=== PATIENT | male | born 1960 | race Caucasian/White ===

== ENCOUNTER 2021-11-14 13:06 | Emergency (ER) | payer BC, SELFPAY ==
[2021-11-14] VITALS (11 sets, daily range): BP systolic 117–140; BP diastolic 72–95; PULSE 75–99; RESP 16–18; TEMP 37.1; O2SAT 96–100; BMI 19.8
--- NOTE | 2021-11-14 13:41 | CRLHL7_ITS ---
For Patients: As a result of the Cures Act, medical imaging exams and procedure reports are released immediately into your electronic medical record. You may view this report before your referring provider. If you have questions, please contact your health care provider. INDICATION: Trauma with posterior left rib pain COMPARISON: A chest radiograph dated January 19 2018 TECHNIQUE: Single-view of the chest was acquired as well as 2 additional images the left rib cage. FINDINGS: TUBES AND LINES: None. HEART AND MEDIASTINUM: The heart size is normal. The mediastinal contour appears normal for patient age. LUNGS AND PLEURAL SPACES: Hyperinflated but otherwise unremarkable appearing lungs. No acute focal findings.No pleural effusion or pneumothorax OSSEOUS STRUCTURES: Demineralization and degenerative changes. There are posterior left rib fractures. This involves the 5th, 7th and 8th and probably ribs. Some of these appear to be chronic though the 8th rib fracture is definitely acute. There is no significant displacement IMPRESSION: 1. Hyperinflated but otherwise normal appearing lungs. No pleural effusion or pneumothorax. 2. Multiple posterior left rib fractures. Some of these are probably not acute. The fracture that is most likely to be acute is a non displaced left 8th rib fracture. None of the fractures appear to be displaced. The subjacent left lung and left pleural space appear normal. Dictated by Crow Armando MD @ 11/14/2021 3:07:16 PM (Electronically Signed)
--- NOTE | 2021-11-14 13:41 | CRLHL7_ITS ---
For Patients: As a result of the Century Cures Act, medical imaging exams and procedure reports are released immediately into your electronic medical record. You may view this report before your referring provider. If you have questions, please contact your health care provider. INDICATION: FALL, HEADACHE CT HEAD WITHOUT CONTRAST TECHNIQUE: Multiple axial CT images were performed through the head without intravenous contrast administration. COMPARISON: No previous studies are currently available for comparison. FINDINGS: There is an acute subdural hematoma over the anterior convexity of the right frontal lobe measuring up to 13 millimeters in thickness. The subdural hematoma also extends along the undersurface of the right frontal lobe and slightly into the interhemispheric fissure. Trace subdural hematoma is also noted along the right tentorium posteriorly, as on image 46 of series 6 and image 90 of series 8. Mild mass effect on the right frontal lobe is noted, with approximately 3 millimeters of [id number] midline shift as measured on image 29 of series 2. There is hypodensity in the right frontal lobe, and to a lesser extent involving the inferomedial left frontal lobe which may represent edema from parenchymal contusion. Alternatively, this may represent chronic encephalomalacia from previous frontal lobe contusions. A trace amount of subarachnoid hemorrhage is noted in a paramedian sulcus over the high left frontal convexity on image 46 of series 2. There is mild diffuse age-related brain atrophy. Ventricular size and configuration are within normal limits for the patient`s age. 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 Osseous structures are within normal limits and no fractures are seen. Included portions of the paranasal sinuses and mastoid air cells are normally aerated aside from a polyp or mucous retention cyst in the left maxillary sinus. IMPRESSION: 1. Acute right-sided subdural hematoma, largest over the anterior right frontal convexity where it measures up to 13 millimeters in thickness. Mild mass effect with approximately 3 millimeters of right to left midline shift is noted. 2. Minimal right-sided subdural hematoma also extends into the anterior interhemispheric fissure and is also seen along the right tentorium posteriorly. 3. Trace subarachnoid hemorrhage is noted over the parasagittal left frontal convexity. 4. Hypodensity consistent with bilateral frontal lobe contusions, worse on the right than the left. 5. Hypodensity in the central norah consistent with a chronic infarct versus sequelae of osmotic demyelinization syndrome. Report called to Dr. Schwartz at 2:35 p.m. on 11/14/2021. SHARMILA FUENTES MD [facility] Dictated by Robles Fuentes MD @ 11/14/2021 2:57:51 PM Please note that all CT scans at this facility use dose modulation, iterative reconstruction, and/or weight-based dosing when appropriate to reduce radiation dose to as low as reasonably achievable. Dictated by: Robles Fuentes MD @ 11/14/2021 14:58:34 (Electronically Signed)
--- NOTE | 2021-11-14 13:42 | ED_ITS ---
HPI - General Adult General Time Seen by Provider: 13:43 Date Seen: 11/14/21 Chief complaint: Head Injury/Pain Stated complaint: Possible brain injury, hard to walk/sleep Time Seen by Provider: 11/14/21 13:16 Source: patient Mode of arrival: ambulatory Limitations: no limitations History of Present Illness HPI narrative: Finn is a 60-year-old male past medical history includes depression anxiety currently on Lexapro presents emerged department with a head injury. 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 Hitting the back of his head on the left side, denied any LOC, but since then he has had a ongoing headache, no nausea vomiting, headache is constant, left-sided, posterior and pounding, he also had injury to his left side of his ribs in the back, denies any shortness of breath or chest pain. No cardiac history. Patient does smoke daily, 1-2 drinks of alcohol daily, he has been taking [id number] medications for the this. Du to the pain he has not been able to get out of bed, has been drinking and eating last and not been able to go to work, and associated abrasions to his left elbow, does have some pain to his hips bilaterally but he is ambulating with no difficulty. Denies any fevers, chills, myalgias arthralgias, no sick contacts. Denies any abdominal pain, urinary bowel complaints, he denies any neck or lower back pain. Patient was concerned about his head injury presents emerged department. Related Data Home Medications Medication Instructions Recorded Confirmed Aleve 11/14/21 acetaminophen 1,000 mg 11/14/21 escitalopram oxalate 10 mg tablet mg 11/14/21 melatonin 11/14/21 Allergies Allergy/AdvReac Type Severity Reaction Status Date / Time No Known Drug Allergies Allergy Verified 11/14/21 13:22 Review of Systems Status of ROS: Reports: 10 or more systems reviewed and unremarkable except as noted in History and below [facility] Social History Smoking Status: Current every day smoker What tobacco products do you use: cigarettes How often do you have a drink containing alcohol: 2-3 times a week How many standard drinks containing alcohol do you have on a typical day: 1 or 2 How often do you have six or more drinks on one occasion: Never AUDIT-C Alcohol total score: 3 Non-prescribed substance use: denies use Exam Narrative: Exam Narrative: General: No obvious distress sitting comfortable HEENT: Small contusion left posterior scalp, no step-offs. Tympanic membranes within normal limits bilaterally oropharynx is clear and moist, pupils equal round reactive to light. Neck: Supple full range of motion, nontender cervical spine Lungs: Clear to auscultation bilaterally Heart: Normal sinus rhythm S1-S2 Abdomen: Nontender soft bowel sounds present Extremities: Internal-external rotation of his hips normal bilaterally, small abrasions to his left elbow healing. Plus five strength his upper lower extremities. Tender to palpation the left posterior lower rib area, no step-offs, no bruising or swelling. Neuro: Alert awake and oriented x3, cranial nerves 2-12 grossly intact, gait within normal limits Const: Vital Signs, click to edit/add: Vital Signs - 24 hr 11/14/21 13:17 11/14/21 15:00 11/14/21 16:00 Temperature 98.8 F Pulse Rate [Left P ulse Oximeter] 99 75 76 Respiratory Rate 18 16 16 Blood Pressure [Le ft Upper Arm] 140/82 H 135/85 Blood Pressure [Ri ght Upper Arm] 117/79 Pulse Oximetry 100 97 98 11/14/21 16:30 11/14/21 17:00 11/14/21 17:30 Temperature Pulse Rate [Left P ulse Oximeter] 75 79 78 Respiratory Rate 16 16 16 Blood Pressure [Le ft Upper Arm] 139/83 126/75 127/72 Blood Pressure [Ri ght Upper Arm] Pulse Oximetry 98 99 99 Course Course Hospital Course: 1:30 PM: AIDET, vitals are stable at this time, workup will include CT head without IV contrast, also obtain XR left ribs and chest x-ray three views, 0.9 normal saline bolus with 15 mg IV Toradol and 5% Lidoderm patch. Will obtain CBC, CMP, INR, serum ETOH magnesium level. Differential diagnosis include life- threatening subarachnoid hemorrhage, subdural hemorrhage and epidural hemorrhage. Other differential diagnosis considered include concussion and close head injury. As well as fracture, sprain, contusion, dislocation vascular damage nerve damage ligament damage tendon damage in other etiologies. 2:15 PM: Patient was feeling anxious after imaging, 0.5 mg IV Ativan and a Nicoderm 14 mg patch applied. Reevaluation(s) Reevaluation #1: Call from Dr. Lester regarding imaging results, to reach out to [facility]. Patient updated on imaging results, CT head without contrast: IMPRESSION:? 1. Acute right-sided subdural hematoma, largest over the anterior right frontal convexity where it measures up to 13 millimeters in thickness. Mild mass effect with approximately 3 millimeters of right to left midline shift is noted. 2. Minimal right-sided subdural hematoma also extends into the anterior interhemispheric fissure and is also seen along the right tentorium posteriorly. 3. Trace subarachnoid hemorrhage is noted over the parasagittal left frontal convexity. 4. Hypodensity consistent with bilateral frontal lobe contusions, worse on the right than the left. 5. Hypodensity in the central norah consistent with a chronic infarct versus sequelae of osmotic demyelinization syndrome. CT cervical spine without: Impression: No acute abnormality. XR ribs right and CXR: Impression: Multiple posterior left rib fractures. Some of these are probably not acute. The fracture that is most likely to be acute is a non displaced left 8th rib fracture. None of the fractures appear to be displaced. The subjacent left lung and left pleural space appear normal. 2:40 PM: spoke with lyft driver Dr. Addison, he recommended transfer admission to neuro ICU. This was discussed with patient he is agreement this plan. Acceptance was made by Dr. Azael BROWN. patient to be transferred via ground ambulance. Imaging sent and reviewed by Neuro Surgery. Labs were otherwise normal. COVID test negative. 4:00 PM: still awaiting on bed availability.. Patient is doing well. 6:00 PM: Bed available, plan to wait for transport at this time. Patient to be given 4 mg of IV morphine and 4 mg IV Zofran for his headache. 8:30 PM: patient is finally to be transported via ground ambulance, He is doing well, no concerns, headache has been controlled. All questions answered. . Time: 14:38 Vital Signs Vital signs: Initial Vital Signs Temperature 98.8 F 11/14/21 13:17 Temperature Source Temporal Artery Scan 11/14/21 13:17 Pulse Rate 99 11/14/21 13:17 Respiratory Rate 18 11/14/21 13:17 Blood Pressure 117/79 11/14/21 13:17 Blood Pressure Mean 91 11/14/21 13:17 Blood Pressure Position Sitting 11/14/21 13:17 Pulse Oximetry 100 11/14/21 13:17 Oxygen Delivery Method 11/14/21 13:17 Vital Signs Temperature 98.8 F 11/14/21 13:17 Pulse Rate 99 11/14/21 13:17 Respiratory Rate 18 11/14/21 13:17 Blood Pressure 117/79 11/14/21 13:17 Pulse Oximetry 100 11/14/21 13:17 Temperature 98.8 F 11/14/21 13:17 Pulse Rate 78 11/14/21 17:30 Respiratory Rate 16 11/14/21 17:30 Blood Pressure 127/72 11/14/21 17:30 Pulse Oximetry 99 11/14/21 17:30 Medical Decision Making Lab Data Labs: Lab Results 11/14/21 11/14/21 11/14/21 Range/Units 14:42 14:42 14:45 WBC 8.01 (4.50-11.00) K/uL RBC 4.19 L (4.30-5.90) m/uL Hgb 12.8 L (13.5-17.5) gm/dL Hct 38.0 (37.0-53.0) % MCV 91 (80-100) fL MCH 31 (26-34) pg MCHC 34 (32-36) gm/dL RDW Coeff of Marsha 19.9 H (11.5-15.5) % Plt Count 211 (140-440) K/uL Neut % (Auto) 80.2 H (42.0-72.0) % Lymph % (Auto) 6.9 L (20-44) % Scurry % (Auto) 12.0 H (0.0-11.0) % Eos % (Auto) 0.2 (0.0-7.0) % Baso % (Auto) 0.2 (0.0-3.0) % Neut # (Auto) 6.40 (1.7-7.0) K/uL Lymph # (Auto) 0.60 L (0.90-2.90) K/uL Scurry # (Auto) 1.00 H (0.00-0.90) K/UL Eos # (Auto) 0.02 (0.00-0.50) K/uL Baso # (Auto) 0.02 (0.00-0.30) K/uL Abs Immat Gran (auto) 0.04 (0.00-0.30) K/uL INR (0.91-1.10) Sodium (135-149) mmol/L Potassium (3.6-5.1) mmol/L Chloride (96-114) mmol/L Carbon Dioxide (20-32) mmol/L BUN (7-30) mg/dL Creatinine (0.5-1.5) mg/dL Estimated Creat Clear Estimated GFR ml/min Glucose (60-115) mg/dL Calcium (8.4-10.6) mg/dL Magnesium 2.4 (1.5-2.6) mg/dL Total Bilirubin (0.1-1.5) mg/dL AST (12-35) U/L ALT (4-50) U/L Alkaline Phosphatase (40-150) U/L Total Protein (6.0-8.3) g/dL Albumin (3.3-5.0) g/dL Ethyl Alcohol < 0.01 L (0.01-0.03) % SARS-CoV-2 (PCR) (Negative) 11/14/21 11/14/21 11/14/21 Range/Units 14:45 14:45 14:45 WBC (4.50-11.00) K/uL RBC (4.30-5.90) m/uL Hgb (13.5-17.5) gm/dL Hct (37.0-53.0) % MCV (80-100) fL MCH (26-34) pg MCHC (32-36) gm/dL RDW Coeff of Marsha (11.5-15.5) % Plt Count (140-440) K/uL Neut % (Auto) (42.0-72.0) % Lymph % (Auto) (20-44) % Scurry % (Auto) (0.0-11.0) % Eos % (Auto) (0.0-7.0) % Baso % (Auto) (0.0-3.0) % Neut # (Auto) (1.7-7.0) K/uL Lymph # (Auto) (0.90-2.90) K/uL Scurry # (Auto) (0.00-0.90) K/UL Eos # (Auto) (0.00-0.50) K/uL Baso # (Auto) (0.00-0.30) K/uL Abs Immat Gran (auto) (0.00-0.30) K/uL INR 0.88 L (0.91-1.10) Sodium 137 (135-149) mmol/L Potassium 4.4 (3.6-5.1) mmol/L Chloride 103 (96-114) mmol/L Carbon Dioxide 22 (20-32) mmol/L BUN 20 (7-30) mg/dL Creatinine 0.6 (0.5-1.5) mg/dL Estimated Creat Clear 64.70 Estimated GFR 110 ml/min Glucose 104 (60-115) mg/dL Calcium 9.3 (8.4-10.6) mg/dL Magnesium (1.5-2.6) mg/dL Total Bilirubin 1.1 (0.1-1.5) mg/dL AST 36 H (12-35) U/L ALT 22 (4-50) U/L Alkaline Phosphatase 132 (40-150) U/L Total Protein 7.8 (6.0-8.3) g/dL Albumin 4.3 (3.3-5.0) g/dL Ethyl Alcohol (0.01-0.03) % SARS-CoV-2 (PCR) Negative SARS-CoV-2 (Negative) Discharge Plan Discharge Clinical Impression: Left rib fracture, Traumatic subarachnoid hemorrhage, Traumatic subdural hematoma Patient Disposition: Xfer [facility] Discharge Location: [facility] Prescriptions: No Action escitalopram oxalate 10 mg tablet 0RF acetaminophen 1,000 mg 0RF Aleve 0RF melatonin 0RF Stand Alone Forms: MyHealth Info Instructions
[2021-11-14] MEDS: KETOROLAC 15 MG/ML inj IVP (14:04)
[2021-11-14] MEDS: LIDOCAINE 5% PATCH 1 PATCH TRANSDERMA (14:04)
--- NOTE | 2021-11-14 14:22 | CRLHL7_ITS ---
For Patients: As a result of the Century Cures Act, medical imaging exams and procedure reports are released immediately into your electronic medical record. You may view this report before your referring provider. If you have questions, please contact your health care provider. INDICATION: Head injury, neck pain. CT CERVICAL SPINE WITHOUT CONTRAST TECHNIQUE: Multidetector axial CT imaging was performed through the cervical spine, without contrast. Sagittal and coronal reconstructions were generated. FINDINGS: No acute fractures are identified. There is straightening of cervical lordosis, possibly due to muscle spasm. Slight anterolisthesis of C4 on C5 is likely chronic and degenerative in nature. Osseous alignment is otherwise unremarkable and no acute-appearing subluxation is seen. Prevertebral soft tissues appear normal. There are several small chronic-appearing ossific densities adjacent to the tip of the dens which are likely developmental or degenerative in origin. There are multilevel cervical spine degenerative changes, including degenerative disc disease at C5-6 and C6-7, and scattered cervical facet joint degenerative changes. Included portions of the airway and lung apices are within normal limits. IMPRESSION: 1. Straightened lordosis, possibly due to muscle spasm. No fracture, acute subluxation, or other acute finding identified. 2. Cervical spondylosis, as noted above. SHARMILA FUENTES MD [facility] Dictated by Robles Fuentes MD @ 11/14/2021 2:46:59 PM Please note that all CT scans at this facility use dose modulation, iterative reconstruction, and/or weight-based dosing when appropriate to reduce radiation dose to as low as reasonably achievable. Dictated by: Robles Fuentes MD @ 11/14/2021 14:47:22 (Electronically Signed)
[2021-11-14] MEDS: LORazepam 2 MG/ML inj 0.5 MG IVP (14:36)
[2021-11-14] MEDS: 0.9 % SODIUM CHLORIDE 500 ML 500 ML 1000 ML IV (14:39)
[2021-11-14 15:04] LABS: Magnesium* 2.4 mg/dL (1.5-2.6)
[2021-11-14 15:05] LABS: Ethanol* < 0.01 % (0.01-0.03)
[2021-11-14] MEDS: NICOTINE 14 mg PATCH 1 PATCH TRANSDERMA (15:14)
[2021-11-14 15:20] LABS: Albumin* 4.3 g/dL (3.3-5.0); Chloride* 103 mmol/L (96-114); Sodium* 137 mmol/L (135-149)
[2021-11-14 15:21] LABS: Potassium* 4.4 mmol/L (3.6-5.1)
[2021-11-14 15:23] LABS: Alanine Aminotransferase* 22 U/L (4-50); Alkaline Phosphatase* 132 U/L (40-150); Aspartate Amino Transferase* 36 U/L (12-35); Bilirubin Total* 1.1 mg/dL (0.1-1.5); Blood Urea Nitrogen* 20 mg/dL (7-30); Carbon Dioxide* 22 mmol/L (20-32); Creatinine* 0.6 mg/dL (0.5-1.5); Estimated Glomerular Filt Rate 110 ml/min; Glucose* 104 mg/dL (60-115); Total Protein* 7.8 g/dL (6.0-8.3)
[2021-11-14 15:24] LABS: Calcium* 9.3 mg/dL (8.4-10.6)
[2021-11-14 15:30] LABS: Basophils Absolute Auto 0.02 K/uL (0.00-0.30); Basophils Percent Auto 0.2 % (0.0-3.0); Eosinophils Absolute Auto 0.02 K/uL (0.00-0.50); Eosinophils Percent Auto 0.2 % (0.0-7.0); Hemoglobin* 12.8 gm/dL (13.5-17.5); Immature Granulocytes Abs Auto 0.04 K/uL (0.00-0.30); Lymphocytes Percent Auto 6.9 % (20-44); Mean Corpuscular HGB Conc 34 gm/dL (32-36); Mean Corpuscular Hemoglobin 31 pg (26-34); Mean Corpuscular Volume 91 fL (80-100); Neutrophils Percent Auto 80.2 % (42.0-72.0); Platelet Count* 211 K/uL (140-440); RDW Coefficient of Variation % 19.9 % (11.5-15.5); Red Blood Count 4.19 m/uL (4.30-5.90); White Blood Count* 8.01 K/uL (4.50-11.00)
[2021-11-14 15:39] LABS: Slide Review Reflex No
[2021-11-14 15:48] LABS: INR 0.88 (0.91-1.10); Prothrombin Time 12.3 Seconds
[2021-11-14 16:15] LABS: SARS PCR* Negative SARS-CoV-2 (Negative)
--- NOTE | 2021-11-14 17:00 | ED.NURSE ---
call to [facility], beds are full, he is on list, they will call us when bed available
--- NOTE | 2021-11-14 18:58 | ED.NURSE ---
Pt did ambulate to BR independently, tolerates well, asks for pain medication for headache.
[2021-11-14] MEDS: MORPHINE 4 MG/ML INJ IVP (19:07)
[2021-11-14] MEDS: ONDANSETRON 2 MG/ML inj 4 MG IVP (19:07)
== END 2021-11-14 20:28 | disposition short-term general hospital (02) ==
PROVIDERS: Emergency Provider Student in an Organized Health Care Education/Training Program; PCP Family Medicine
DX: S06.6X0A Traumatic subarachnoid hemorrhage without loss of consciousness, initial encounter (principal); S22.32XA Fracture of one rib, left side, initial encounter for closed fracture
CPT/HCPCS: 36415; 70450; 71101; 72125; 80053; 82077; 83735; 85025; 85610; 87635; 96374; 96375; 99283; 99285; A9270; J1885; J2060; J2270; J2405; J7120; S4990

== ENCOUNTER 2021-11-14 20:15 | Outpatient (CLI) | payer BC, SELFPAY | END 2021-11-14 20:16 | disposition home or self-care (01) | LOC: AMB 12-04 15:47 | PROVIDERS: PCP Family Medicine; Visit Provider Family Medicine | DX: S06.5X9S Traumatic subdural hemorrhage with loss of consciousness of unspecified duration, sequela (principal); S29.9XXS Unspecified injury of thorax, sequela | CPT/HCPCS: A0425; A0429 ==

== ENCOUNTER 2022-01-13 08:47 | Emergency (ER) | payer BC, SELFPAY ==
[2022-01-13 08:56] VITALS: BP 128/83; PULSE 113; RESP 24; TEMP 36.2; O2SAT 98; BMI 16.9
--- NOTE | 2022-01-13 09:10 | CRLHL7_ITS ---
For Patients: As a result of the Century Cures Act, medical imaging exams and procedure reports are released immediately into your electronic medical record. You may view this report before your referring provider. If you have questions, please contact your health care provider. Indication: Fall Technique: Contiguous axial images from the skull base through the superior mediastinum were obtained with coronal and sagittal reformations. No IV contrast was administered. Comparison: 11/14/2021 Findings: No definite acute appearing cervical spine fracture. Stable minimal anterolisthesis of C4 on C5. Multilevel degenerative change. On soft tissues, there is no definite epidural hematoma. Lung apices are stable. Impression: No CT evidence of cervical spine fracture or static subluxation. Please note that all CT scans at this facility use dose modulation, iterative reconstruction, and/or weight-based dosing when appropriate to reduce radiation dose to as low as reasonably achievable. Dictated by Tylor Casey MD @ 01/13/2022 10:09:08 AM (Electronically Signed)
--- NOTE | 2022-01-13 09:10 | CRLHL7_ITS ---
For Patients: As a result of the Cures Act, medical imaging exams and procedure reports are released immediately into your electronic medical record. You may view this report before your referring provider. If you have questions, please contact your health care provider. Indication: Fall Comparison: 11/14/2021 Technique: Multiple sequential axial images from the foramen magnum to the vertex were obtained without IV contrast. Findings: Slightly limited by motion artifact. No definite skull fracture. Bilateral subdural hematomas increased from previous. Slight higher attenuation seen in a linear fashion, mostly on the left suggesting acute on subacute blood, otherwise but appears intermediate in density. There is evidence of mass effect bilaterally. The left ventricle measures 12 mm, compared with 17 mm on the previous. The right ventricle is also smaller in size. There is mild shift of the left hemisphere to the right, approximately 4 mm. No definite herniation/effacement of the cisterns. Large near midline infarct in the norah, as seen previously. Atrophic changes in the area of contusion/infarct in the right frontal lobe. Tiny amount of fluid posteriorly in the left maxillary sinus remains. The mastoid air cells are patent. Orbits appear unremarkable. Impression: 1. Bilateral subdural hematomas increased from previous. Slight higher attenuation seen in a linear fashion, mostly on the left suggesting acute on subacute blood, otherwise but appears intermediate in density. 2. There is evidence of mass effect bilaterally and there is mild shift of the left hemisphere to the right, approximately 4 mm. No definite herniation/effacement of the cisterns. Please note that all CT scans at this facility use dose modulation, iterative reconstruction, and/or weight-based dosing when appropriate to reduce radiation dose to as low as reasonably achievable. Dictated by Tylor Casey MD @ 01/13/2022 10:04:45 AM (Electronically Signed)
--- NOTE | 2022-01-13 09:13 | ED.GENADULT ---
HPI - General Adult General Chief complaint: Fall/Minor Trauma Stated complaint: Dizziness and nausea 3 days after fall Time Seen by Provider: 01/13/22 08:53 Source: patient Mode of arrival: EMS Limitations: no limitations History of Present Illness HPI narrative: 61-year-old male with a long history of significant alcoholism coming in today with dizziness after falling 2 days ago. Patient states that he lost his balance 2 days ago, can not quite remember the specifics of why he fell but feels like he hit the back of his head. When I ask him about the bruising on his face, he tells me that he must have hit his head all around. He believes that he was able to get up at that time but since then he has not been able to walk in a straight line. He states that he feels like he is going to fall over. He denies favoring 1 side that he wants to fall to. He denies the room spinning around him. He feels nauseated but has not vomited. He is unsure of when his last alcoholic beverage was, but feels that he is likely withdrawing as he feels very jittery and shaky. However, he tells me that the shakiness started while he was still drinking. Denies other drug use. States that he lives at home with his and son. States that his son helps him but his does not. States that he has been crawling when he has to go to the bathroom. He denies chest pain or abdominal pain. Related Data Home Medications Medication Instructions Recorded Confirmed Aleve 11/14/21 acetaminophen 1,000 mg PO PRN 11/14/21 escitalopram oxalate 10 mg tablet mg PO DAILY 11/14/21 melatonin 11/14/21 Allergies Allergy/AdvReac Type Severity Reaction Status Date / Time No Known Drug Allergies Allergy Verified 11/14/21 13:22 Review of Systems Status of ROS: Reports: 10 or more systems reviewed and unremarkable except as noted in History and below PFSH PFS Social History Smoking Status: Current every day smoker What tobacco products do you use: cigarettes Smoking packs per day: 0.75 Smoking cigarettes per day: 15.0 Do you use any of these nicotine containing products: None Second hand tobacco smoke exposure: No How often do you have a drink containing alcohol: 2-3 times a week How many standard drinks containing alcohol do you have on a typical day: 5 or 6 How often do you have six or more drinks on one occasion: Daily or almost daily AUDIT-C Alcohol total score: 9 Non-prescribed substance use: denies use Exam Narrative: Exam Narrative: GCS is 15. There is no obvious bleeding noted. Patient is breathing and speaking without difficulty. Cachectic patient in no acute distress, tremor at rest. Alert and oriented. Answers questions appropriately. Mood and affect are appropriate. Thoughts are goal oriented and rational. No tangential or magical thinking noted. Patient speaks in full sentences without needing to catch his breath. Patient has during which is or dried old blood scattered throughout his extremities. HEENT: Normocephalic. Patient has bruising noted On his voodoo, his right cheek. Pupils are equally round reactive to light. Extraocular muscles are intact. Conjunctivae are moist without any icterus noted. Moist mucous membranes. Posterior pharynx is normal. Neck is soft without any lymphadenopathy or thyromegaly. No masses are appreciated. Cardiovascular: Heart is regular rate and rhythm S1 and S2 are present without any murmurs. Lungs: Clear to auscultation bilaterally no wheezes rhonchi or rales are appreciated. Patient takes deep breaths without any discomfort. Abdomen: Soft and nontender nondistended with normal bowel sounds. No guarding or rebound. Extremities: Bilateral lower extremities are without edema. Normal DP and PT pulses. Skin: Well perfused without any obvious rashes. He has scattered bruising over the lower extremities, both knees, right ankle is bruised. Abrasion and bruising of the anterior right shoulder. Abrasion of the right ear. Back: Patient has no tenderness to palpation of the cervical, thoracic or lumbar spine. Const: Vital Signs, click to edit/add: Vital Signs - 24 hr 01/13/22 08:56 01/13/22 09:40 01/13/22 10:00 Temperature 97.1 F L Pulse Rate [Left P ulse Oximeter] 113 H 100 Respiratory Rate 24 20 Blood Pressure [Le ft Upper Arm] 128/83 125/78 Pulse Oximetry 98 97 95 Oxygen Delivery Me thod Room Air Room Air 01/13/22 10:30 Temperature Pulse Rate [Left P ulse Oximeter] 106 H Respiratory Rate 12 Blood Pressure [Le ft Upper Arm] 113/82 Pulse Oximetry 97 Oxygen Delivery Me thod Course Course Hospital Course: IV was established IV fluids were started. Patient had an EKG done which shows sinus tachycardia with a pulse of 106, prolonged QT. His labs were grossly abnormal: His hemoglobin dropped from just over 12 to just over 9. LFTs elevated, lactate elevated at 4.1. Cervical spine CT was unremarkable. Head CT was read as an acute subdural hematoma. I did speak to Dr. Addison table assembler metal at [facility] who recommended we speak to neuro surgery. We followed up with a conversation with Dr. Conde, who felt that the subdural hematomas were not in fact new. However, with his new symptoms of inability to ambulate, it was decided to transfer the patient to neuro ICU for potential jerome hole. Vital Signs Vital signs: Initial Vital Signs Temperature 97.1 F L 01/13/22 08:56 Temperature Source Temporal Artery Scan 01/13/22 08:56 Pulse Rate 113 H 01/13/22 08:56 Respiratory Rate 24 01/13/22 08:56 Blood Pressure 128/83 01/13/22 08:56 Blood Pressure Mean 98 01/13/22 08:56 Blood Pressure Position Supine 01/13/22 08:56 Pulse Oximetry 98 01/13/22 08:56 Oxygen Delivery Method 01/13/22 08:56 Vital Signs Temperature 97.1 F L 01/13/22 08:56 Pulse Rate 113 H 01/13/22 08:56 Respiratory Rate 24 01/13/22 08:56 Blood Pressure 128/83 01/13/22 08:56 Pulse Oximetry 98 01/13/22 08:56 Oxygen Delivery Method 01/13/22 08:56 Temperature 97.1 F L 01/13/22 08:56 Pulse Rate 106 H 01/13/22 10:30 Respiratory Rate 12 01/13/22 10:30 Blood Pressure 113/82 01/13/22 10:30 Pulse Oximetry 97 01/13/22 10:30 Oxygen Delivery Method 01/13/22 10:00 Medical Decision Making [facility] Narrative Medical decision making narrative: 61-year-old male long history of alcoholism, subdural hematomas suffered at the end of October, increasing neurologic symptoms with inability to ambulate after a 2nd fall 2 days ago. Patient will be transferred to [facility] for further management. Medical Records Medical records reviewed: Yes I reviewed the patient's medical records Lab Data Lab results reviewed: Yes I reviewed the patient's lab results Labs: Lab Results 01/13/22 01/13/22 01/13/22 Range/Units 09:42 09:42 09:42 WBC 8.97 (4.50-11.00) K/uL RBC 2.85 L (4.30-5.90) m/uL Hgb 9.2 L (13.5-17.5) gm/dL Hct 27.0 L (37.0-53.0) % MCV 95 (80-100) fL MCH 32 (26-34) pg MCHC 34 (32-36) gm/dL RDW Coeff of Marsha 17.0 H (11.5-15.5) % Plt Count 116 L (140-440) K/uL Neut % (Auto) 91.8 H (42.0-72.0) % Lymph % (Auto) 2.3 L (20-44) % [place] % (Auto) 5.5 (0.0-11.0) % Eos % (Auto) 0.0 (0.0-7.0) % Baso % (Auto) 0.1 (0.0-3.0) % Neut # (Auto) 8.20 H (1.7-7.0) K/uL Lymph # (Auto) 0.20 L (0.90-2.90) K/uL [place] # (Auto) 0.50 (0.00-0.90) K/UL Eos # (Auto) 0.00 (0.00-0.50) K/uL Baso # (Auto) 0.01 (0.00-0.30) K/uL Abs Immat Gran (auto) 0.03 (0.00-0.30) K/uL INR 0.87 L (0.91-1.10) Sodium 140 (135-149) mmol/L Potassium 3.7 (3.6-5.1) mmol/L Chloride 97 (96-114) mmol/L Carbon Dioxide 31 (20-32) mmol/L BUN 44 H (7-30) mg/dL Creatinine 0.7 (0.5-1.5) mg/dL Estimated Creat Clear 54.54 Estimated GFR 104 ml/min Glucose 169 H (60-115) mg/dL Lactate (0.5-1.9) mmol/L Calcium 9.0 (8.4-10.6) mg/dL Total Bilirubin 0.8 (0.1-1.5) mg/dL Direct Bilirubin 0.3 (0.0-0.5) mg/dL AST 125 H (12-35) U/L ALT 103 H (4-50) U/L Alkaline Phosphatase 164 H (40-150) U/L Troponin I 0.04 (0.01-0.04) ng/mL Total Protein 6.6 (6.0-8.3) g/dL Albumin 4.1 (3.3-5.0) g/dL Lipase 113 (23-300) U/L Urine Opiates Screen (Negative) Ur Buprenorphine Scrn (Negative) Ur Oxycodone Screen (Negative) Urine Methadone Screen (Negative) Ur Propoxyphene Screen (Negative) Ur Barbiturates Screen (Negative) U Tricyclic Antidepress (Negative) Ur Phencyclidine Scrn (Negative) Ur Amphetamines Screen (Negative) U Methamphetamines Scrn (Negative) U Benzodiazepines Scrn (Negative) Urine Cocaine Screen (Negative) U Marijuana (THC) Screen (Negative) Ur Drug Screen Comment Ethyl Alcohol < 0.01 L (0.01-0.03) % 01/13/22 01/13/22 Range/Units 09:42 09:59 WBC (4.50-11.00) K/uL RBC (4.30-5.90) m/uL Hgb (13.5-17.5) gm/dL Hct (37.0-53.0) % MCV (80-100) fL MCH (26-34) pg MCHC (32-36) gm/dL RDW Coeff of Marsha (11.5-15.5) % Plt Count (140-440) K/uL Neut % (Auto) (42.0-72.0) % Lymph % (Auto) (20-44) % Renville % (Auto) (0.0-11.0) % Eos % (Auto) (0.0-7.0) % Baso % (Auto) (0.0-3.0) % Neut # (Auto) (1.7-7.0) K/uL Lymph # (Auto) (0.90-2.90) K/uL [place] # (Auto) (0.00-0.90) K/UL Eos # (Auto) (0.00-0.50) K/uL Baso # (Auto) (0.00-0.30) K/uL Abs Immat Gran (auto) (0.00-0.30) K/uL INR (0.91-1.10) Sodium (135-149) mmol/L Potassium (3.6-5.1) mmol/L Chloride (96-114) mmol/L Carbon Dioxide (20-32) mmol/L BUN (7-30) mg/dL Creatinine (0.5-1.5) mg/dL Estimated Creat Clear Estimated GFR ml/min Glucose (60-115) mg/dL Lactate 4.1 H* (0.5-1.9) mmol/L Calcium (8.4-10.6) mg/dL Total Bilirubin (0.1-1.5) mg/dL Direct Bilirubin (0.0-0.5) mg/dL AST (12-35) U/L ALT (4-50) U/L Alkaline Phosphatase (40-150) U/L Troponin I (0.01-0.04) ng/mL Total Protein (6.0-8.3) g/dL Albumin (3.3-5.0) g/dL Lipase (23-300) U/L Urine Opiates Screen Negative (Negative) Ur Buprenorphine Scrn Negative (Negative) Ur Oxycodone Screen Negative (Negative) Urine Methadone Screen Negative (Negative) Ur Propoxyphene Screen Negative (Negative) Ur Barbiturates Screen Negative (Negative) U Tricyclic Antidepress Negative (Negative) Ur Phencyclidine Scrn Negative (Negative) Ur Amphetamines Screen Negative (Negative) U Methamphetamines Scrn Negative (Negative) U Benzodiazepines Scrn Negative (Negative) Urine Cocaine Screen Negative (Negative) U Marijuana (THC) Screen Negative (Negative) Ur Drug Screen Comment See Note Ethyl Alcohol (0.01-0.03) % Imaging Data CT scan - head: Attestation: I have reviewed the pertinent imaging results. Radiologist's impression: Indication: Fall Comparison: 11/14/2021 Technique: Multiple sequential axial images from the foramen magnum to the vertex were obtained without IV contrast. Findings: Slightly limited by motion artifact. No definite skull fracture. Bilateral subdural hematomas increased from previous. Slight higher attenuation seen in a linear fashion, mostly on the left suggesting acute on subacute blood, otherwise but appears intermediate in density. There is evidence of mass effect bilaterally. The left ventricle measures 12 mm, compared with 17 mm on the previous. The right ventricle is also smaller in size. There is mild shift of the left hemisphere to the right, approximately 4 mm. No definite herniation/effacement of the cisterns. Large near midline infarct in the norah, as seen previously. Atrophic changes in the area of contusion/infarct in the right frontal lobe. Tiny amount of fluid posteriorly in the left maxillary sinus remains. The mastoid air cells are patent. Orbits appear unremarkable. Impression: 1. Bilateral subdural hematomas increased from previous. Slight higher attenuation seen in a linear fashion, mostly on the left suggesting acute on subacute blood, otherwise but appears intermediate in density. 2. There is evidence of mass effect bilaterally and there is mild shift of the left hemisphere to the right, approximately 4 mm. No definite herniation/effacement of the cisterns. Cervical spine CT: Attestation: I have reviewed the pertinent imaging results. Radiologist's impression: Technique: Contiguous axial images from the skull base through the superior mediastinum were obtained with coronal and sagittal reformations. No IV contrast was administered. Comparison: 11/14/2021 Findings: No definite acute appearing cervical spine fracture. Stable minimal anterolisthesis of C4 on C5. Multilevel degenerative change. On soft tissues, there is no definite epidural hematoma. Lung apices are stable. Impression: No CT evidence of cervical spine fracture or static subluxation. ECG Data Attestation: I personally reviewed and interpreted this ECG as follows: (Sinus tachycardia, pulse 106, prolonged QT) Discharge Plan Discharge Clinical Impression: Major neurological deficit, Subdural hematoma Patient Disposition: Xfer [facility] Discharge Location: [facility] Condition: Stable Prescriptions: No Action escitalopram oxalate 10 mg tablet PO DAILY acetaminophen 1,000 mg PO PRN Aleve melatonin Follow Up/Referrals: Chauncey Perez MD [Primary Care Provider] - Stand Alone Forms: [employer] Info Instructions
[2022-01-13] MEDS: LORazepam 2 MG/ML inj 0.5 MG IVP (09:37)
[2022-01-13] MEDS: ONDANSETRON 2 MG/ML inj 4 MG IVP (09:37)
[2022-01-13 09:40] VITALS: O2SAT 97
[2022-01-13 09:48] LABS: Basophils Absolute Auto 0.01 K/uL (0.00-0.30); Basophils Percent Auto 0.1 % (0.0-3.0); Hemoglobin* 9.2 gm/dL (13.5-17.5); Immature Granulocytes Abs Auto 0.03 K/uL (0.00-0.30); Lymphocytes Percent Auto 2.3 % (20-44); Mean Corpuscular HGB Conc 34 gm/dL (32-36); Mean Corpuscular Hemoglobin 32 pg (26-34); Mean Corpuscular Volume 95 fL (80-100); Monocytes Percent Auto 5.5 % (0.0-11.0); Neutrophils Percent Auto 91.8 % (42.0-72.0); Platelet Count* 116 K/uL (140-440); Red Blood Count 2.85 m/uL (4.30-5.90); White Blood Count* 8.97 K/uL (4.50-11.00)
[2022-01-13] MEDS: 0.9 % SODIUM CHLORIDE 1000 ml 1,000 ML IV (09:50)
[2022-01-13 09:53] LABS: Lactate* 4.1 mmol/L (0.5-1.9)
[2022-01-13 09:55] LABS: Slide Review Reflex No
[2022-01-13 10:00] VITALS: BP 125/78; PULSE 100; RESP 20; O2SAT 95
[2022-01-13 10:03] LABS: Albumin* 4.1 g/dL (3.3-5.0); Chloride* 97 mmol/L (96-114); Potassium* 3.7 mmol/L (3.6-5.1); Sodium* 140 mmol/L (135-149)
[2022-01-13 10:04] LABS: INR 0.87 (0.91-1.10); Prothrombin Time 12.2 Seconds
[2022-01-13 10:05] LABS: Creatinine* 0.7 mg/dL (0.5-1.5); Est. Creatinine Clearance* 54.54; Estimated Glomerular Filt Rate 104 ml/min
[2022-01-13 10:06] LABS: Alanine Aminotransferase* 103 U/L (4-50); Alkaline Phosphatase* 164 U/L (40-150); Aspartate Amino Transferase* 125 U/L (12-35); Bilirubin Direct* 0.3 mg/dL (0.0-0.5); Bilirubin Total* 0.8 mg/dL (0.1-1.5); Blood Urea Nitrogen* 44 mg/dL (7-30); Carbon Dioxide* 31 mmol/L (20-32); Glucose* 169 mg/dL (60-115); Lipase* 113 U/L (23-300); Total Protein* 6.6 g/dL (6.0-8.3)
[2022-01-13 10:15] LABS: Ethanol* < 0.01 % (0.01-0.03)
[2022-01-13 10:18] LABS: Troponin I* 0.04 ng/mL (0.01-0.04)
[2022-01-13 10:30] VITALS: BP 113/82; PULSE 106; RESP 12; O2SAT 97
[2022-01-13 10:43] LABS: Amphetamine Screen Urine Negative (Negative); Barbiturate Screen Urine Negative (Negative); Benzodiazepines Screen Urine Negative (Negative); Buprenorphine Screen Urine Negative (Negative); Cannabinoid Screen Urine Negative (Negative); Cocaine Screen Urine Negative (Negative); Methadone Screen Urine Negative (Negative); Methamphetamines Screen Urine Negative (Negative); Opiate Screen Urine Negative (Negative); Oxycodone Screen Urine Negative (Negative); Phencyclidine Screen Urine Negative (Negative); Tricyclic Antidepressant Urine Negative (Negative)
--- NOTE | 2022-01-13 10:50 | ED.NURSE ---
C-collar removed by . Report given to [facility]. Dispatch notified. Awaiting for available ambulance.
[2022-01-13 10:55] LABS: SARS PCR* Negative SARS-CoV-2 (Negative)
[2022-01-13 12:00] VITALS: BP 127/77; PULSE 99; RESP 18; O2SAT 97
[2022-01-13 12:02] VITALS: BP 127/77; PULSE 99; RESP 18; TEMP 36.2
--- NOTE | 2022-01-13 12:04 | ED.NURSE ---
Report given to EMS. Pt leaves ED via EMS cot. Updated [facility] ICU staff with ETA and COVID result.
== END 2022-01-13 12:05 | disposition short-term general hospital (02) ==
PROVIDERS: Emergency Provider Family Medicine; PCP Family Medicine
DX: R41.89 Other symptoms and signs involving cognitive functions and awareness (principal); S06.5X0A Traumatic subdural hemorrhage without loss of consciousness, initial encounter
CPT/HCPCS: 36415; 70450; 72125; 80048; 80076; 80306; 82077; 83605; 83690; 84484; 85025; 85610; 87635; 93005; 94761; 96374; 96375; 99284; 99285; J2060; J2405; J7030

== ENCOUNTER 2022-01-13 11:57 | Outpatient (CLI) | payer BC, SELFPAY | END 2022-01-13 11:58 | disposition home or self-care (01) | LOC: AMB 02-14 16:47 | PROVIDERS: PCP Family Medicine; Visit Provider Family Medicine | DX: S06.5X9S Traumatic subdural hemorrhage with loss of consciousness of unspecified duration, sequela (principal) | CPT/HCPCS: A0425; A0426 ==